=== PATIENT | female | born 1945 | race Caucasian/White ===

== ENCOUNTER 2021-07-10 09:38 | Outpatient (REF) | payer MEDICARE, OTHER, SELFPAY ==
--- NOTE | ~2021-07-10 | MR_ITS ---
EXAMINATION: MR BRAIN WITHOUT AND WITH CONTRAST CLINICAL INFORMATION: Tinnitus left ear. Sudden hearing loss. COMPARISON: None available. TECHNIQUE: Multiplanar, multisequence MRI of the brain was obtained before and after the intravenous administration of 6.5 mL Gadavist. FINDINGS: There is no fluid signal within the upper aspect of the left superior semicircular canal that can be followed with a high-resolution temporal bone CT to exclude labyrinthitis ossificans or other pathology. The vestibular aqueducts are not enlarged. Cranial nerves VII and VIII complexes are normal in morphology. No enhancing CP angle/retrocochlear lesion. There is no pathologic intracranial enhancement. There is mild chronic microangiopathy. Global cerebral volume loss. No acute infarct on diffusion-weighted imaging. No intracranial hemorrhage on the gradient series. No hydrocephalus, extra-axial surface collection, or herniation. The midline intracranial structures are normal. Cerebellar tonsils are normally positioned. Craniocervical junction is normal. Osseous marrow signal intensity remains homogeneous. No significant soft tissue abnormality is appreciated. 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 Hyperostosis frontalis interna. MR/MR head/brain wo/w con IMPRESSION: - No enhancing retrocochlear pathology. There is no fluid signal within the upper aspect of the left superior semicircular canal that can be followed with a high-resolution temporal bone CT to exclude labyrinthitis ossificans or other pathology. 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 - There is global cerebral volume loss and there is mild chronic microangiopathy.
== END 2021-07-10 09:39 | disposition home or self-care (01) ==
LOC: HO.MRI 09:38
PROVIDERS: Visit Provider Otolaryngology
DX: H93.12 Tinnitus, left ear (principal); H91.22 Sudden idiopathic hearing loss, left ear
CPT/HCPCS: 70553; A9585

== ENCOUNTER 2021-09-13 07:32 | Outpatient (REF) | payer MEDICARE, OTHER, SELFPAY ==
--- NOTE | ~2021-09-13 | CT_ITS ---
EXAMINATION: CT INTERNAL AUDITORY CANALS WITHOUT CONTRAST CLINICAL INFORMATION: Semicircular canal dehiscence. COMPARISON: Brain MRI 07/10/2021. TECHNIQUE: CT imaging of the temporal bones was performed without contrast. Data was reformatted into multiplanar images at the acquisition workstation. This CT examination was performed using dose optimization techniques as appropriate, variously including the following: *Automated exposure control *Adjustment of mA and/or kV according to patient size (this includes techniques or standardized protocols for targeted exams where dose is matched to indication/reason for exam; i.e. extremities or head) *Use of iterative reconstruction technique DLP: 151 mGy-cm FINDINGS: Left temporal bone: The external auditory canal is patent and there is no abnormal thickening of the tympanic membrane. The ossicular chain is intact. No mastoid or middle ear effusion. Labyrinthine structures are morphologically normal and the otic capsule is intact. Internal auditory canal is unremarkable. Right temporal bone: The external auditory canal is patent and there is no abnormal thickening of the tympanic membrane. The ossicular chain is intact. No mastoid or middle ear effusion. Labyrinthine structures are morphologically normal and the otic capsule is intact. Internal auditory canal is unremarkable. Other: Limited visualization of the intracranial anatomy reveals no abnormal finding. Specifically there is no intracranial mass effect or hydrocephalus. 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 CT/CT internal auditory canals BI IMPRESSION: Unremarkable CT scan of the temporal bones. There is no abnormal finding to provide an explanation for this patient's left-sided tinnitus. No evidence of semicircular canal dehiscence.
== END 2021-09-13 07:33 | disposition home or self-care (01) ==
LOC: HO.CT 07:32
PROVIDERS: PCP Internal Medicine; Visit Provider Otolaryngology
DX: R42 Dizziness and giddiness (principal)
CPT/HCPCS: 70480